=== PATIENT | male | born 1965 | race Caucasian/White ===

== ENCOUNTER 2016-11-23 09:30 | Emergency (ER) | payer BC ==
[2016-11-23 09:34] VITALS: BP 181/85; BMI 36.6
--- NOTE | 2016-11-23 09:47 | DR.NOSEBLE ---
HPI - Time Seen Time seen: 09:45 - Primary Care Physician Primary Care Physician: Delilah YORK - HPI Comment HPI Comment: WORSE TODAY. BLEEDING WORSE ON LEFT NOSTRIL. PATIENT SAID BLEEDING IS CONTINOUS TODAY. PRESSURE IS NOT STOPPING BLEEDING. PATIENT USES BY-PAP AT NIGHT. - Complaints Chief Complaint Doctors Comments: INTERMITTENT NOSE BLEED TIMES 3 TO 4 DAYS. Chief Complaint:: PT. C/O NOSEBLEED WHICH BEGAN WEDNESDAY AND HAS BECOME MORE CONSISTENT. - Reviewed Nurses Notes Reviewed: Yes - Source History Provided: Patient - Mode of Arrival Mode of Arrival: Ambulatory - Timing Onset of Chief Complaint: 11/19/16 - Duration Bleeding: Intermittent Duration: Days - Location Location: Both - Severity Severity: Moderate Measure: Cups Bleeding:: Uncontrolled - Associated Signs and Symptoms Associated Signs and Symptoms: None PMH - PMH Past Medical History: Yes Past Medical History: Dyslipidemia, Hypertension Past Medical History Comment: SLEEP APNEA Past Surgical History: Yes Surgical History: Appendectomy, Ortho Surgery, Tonsillectomy - Family History History of Family Medical Conditions: No - Social History Does patient currently use any type of tobacco product: Yes Have you used tobacco products in the last 12 months: Yes Type of Tobacco Use: Cigars Does any household member use tobacco: No Alcohol Use: Occasionally Do you use any recreational Drugs:: No Lives With: Spouse Lives Where: Home - infectious screening In the last 2 months have you had wt loss of >10#?: NO Have you had fever, night sweats or hemotysis?: No Have you traveled outside the country in the last 6 months?: No Isolation: Standard ROS - Review of Systems Constitutional: No Symptoms Reported Eyes: No Symptoms Reported ENTM: Epistaxis, Nose Congestion. negative: Ear Discharge, Throat Pain Respiratoy: Non-Productive Cough. negative: Short of Breath, Wheezing, Hemoptysis Cardiovascular: negative: Chest Pain, Edema Gastrointestinal/Abdominal: No Symptoms Reported. negative: Abdominal Pain, Diarrhea, Nausea, Vomiting Genitourinary: No Symptoms Reported. negative: Dysuria, Frequency, Hematuria Neurological: No Symptoms Reported Musculoskeletal: Back Pain Integumentary: negative: Bruises, Juandice Hematologic/Lymphatic: Easy Bruising Endocrine: No Symptoms Reported All Other Systems: Reviewed and Negative PE - Vital Signs Vitals: Temperature 98.4 F Pulse Rate 62 Respiratory Rate 17 Blood Pressure 181/85 O2 Sat by Pulse Oximetry 99 - General Limitations: No Limitations General Appearance: Alert - Head Head Exam: Normal Inspection - Eyes Eye exam: Normal Appearance Eyelids: Normal Inspection: Bilateral Pupils: Regular, Round: Bilateral, Reactive: Bilateral - ENT ENT Exam: Normal External Ear Exam, TM's Normal Bilaterally, Other (BLEEDING FROM BOTH NOSTRIL, LEFT GREATER.) External Ear Exam: Normal External Inspection TM/Canal Exam: Bilateral Normal Mouth Exam: Other (BLOOD COMING OUT OF MOUTH,) Throat Exam: Normal Inspection, Other (BLOOD IN MOUTH) - Neck Neck Exam: Trachea Midline - Chest Chest Inspection: Symmetric Chest Wall Rise - Respiratory Respiratory Exam: Normal Lung Sounds Bilat Respiratory Exam: Bilateral Clear to Auscultation - Cardiovascular Cardiovascular Exam: Regular Rate, Normal Rhythm, Normal Heart Sounds - Abdominal Exam Abdominal Exam: Normal Bowel Sounds, Soft. negative: Tenderness - Extremities Extremities Exam: Normal Inspection - Back Back Exam: Normal Inspection - Neurologic Neurological Exam: Alert, Oriented X3, CN II-XII Intact - Skin Skin Exam: Normal Color MDM - Differential Diagnosis Differential Diagnosis: Anterior Nasal Bleed, Posterior Nasal Bleed, Hypertension Course - Treatment Treatment: PATIENT DO NOT WISH TO HAVE NASAL PACKING. CALL ENT IN [facility] [place] BUT THEY WERE NOT AVAILABLE. PATIENT SIGN AMA AND LEFT. HE DID NOT WANT US TO CALL [facility]. - Reevaluation 1st: Unchanged - Education/Counseling Education/Counseling: Patient, Education Educated On: Diagnosis, Needs for Follow Up - Diagnosis Discharge Problem: Nosebleed, symptom, Epistaxis - Discharge Plan Disposition: 07 AGAINST MEDICAL ADVICE Condition: Stable - Follow ups/Referrals Follow ups/Referrals: CAITLIN YORK [Primary Care Provider] - 3 days - Instructions Additional Instructions: DISCHARGE AMA.
== END 2016-11-23 10:35 | disposition left against medical advice (07) ==
LOC: ER 09:48
DX: R04.0 Epistaxis (principal)
CPT/HCPCS: 99282